=== PATIENT | female | born 1955 | race Caucasian/White ===

== ENCOUNTER 2016-07-23 07:20 | Emergency (ER) | payer OTHER ==
[~2016-07-23] VITALS: Ht 157.5 cm; Wt 47.0 kg
[2016-07-23 07:50] LABS: EOSINOPHIL (%) 1.9 % (0-5); EOSINOPHIL COUNT 0.1 K/uL (0-0.3); HEMATOCRIT 42.4 % (36.0-46.0); IMMATURE GRANULOCYTE (%) 0.4 % (0.0-0.7); INSTRUMENT ABS NEUTROPHIL CT 3.3 K/uL; LYMPHOCYTE COUNT 1.3 K/uL (1.0-2.8); MCH 32.8 PG (29.0-34.0); MCHC 34.7 G/DL (30.0-36.0); MCV 94.6 FL (83-99); MEAN PLAT.VOLUME 9.2 uM^3 (9.5-12.4); MONOCYTE (%) 9.4 % (3-12); MONOCYTE COUNT 0.5 K/uL (0-0.8); NEUTROPHIL (%) 62.5 % (45-76); NEUTROPHIL COUNT 3.3 K/uL (1.8-6.4); PLATELET COUNT 274 K/uL (156-360); RBC DIS.WIDTH-CV 12.6 % (11.8-14.6); RBC DIS.WIDTH-SD 43.8 % (39-53); RED BLOOD COUNT 4.48 M/uL (3.80-5.20); WHITE BLOOD COUNT 5.3 K/uL (4.1-10.2)
[2016-07-23 07:58] LABS: CHLORIDE 102 mEq/L (99-109); POTASSIUM 4.5 mEq/L (3.7-5.4); SODIUM 134 mEq/L (136-147)
[2016-07-23 08:00] LABS: GLUCOSE 108 mg/dL (70-99)
[2016-07-23 08:01] LABS: ANION GAP 11 MEQ/L (2-14)
[2016-07-23 08:02] LABS: TOTAL BILIRUBIN 0.5 mg/dL (0.0-1.0)
[2016-07-23 08:04] LABS: ALKALINE PHOSPHATASE 101 IU/L (3-129); GFR ESTIMATE (CALCULATED) > 59 mL/min/
[2016-07-23 08:05] LABS: UREA NITROGEN (BUN) 7 mg/dL (9-23)
[2016-07-23 08:07] LABS: LIPASE 42 U/L (1.0-51.0)
[2016-07-23 08:55] LABS: ADD MIUA? YES; BILIRUBIN NEGATIVE; BLOOD MODERATE; COLOR YELLOW ((YELLOW)); GLUCOSE (STRIP) NEGATIVE; KETONES NEGATIVE; LEUKOCYTES SMALL; NITRITE NEGATIVE; PROTEIN (STRIP) NEGATIVE; UROBILINOGEN 0.2 MG/DL (0.2-1.0)
[2016-07-23 09:13] LABS: BACTERIA NONE SEEN /HPF; EPITHELIAL CELLS RARE /HPF; HYALINE CASTS 0-5 /LPF; MUCUS TRACE /LPF; UCUL ADDED? NO
[2016-07-23] MEDS ORDERED: CIPRO500 MG PO (13:29)
[2016-07-23 14:12] VITALS: BP 171/75
== END 2016-07-23 14:14 | disposition home or self-care (01) ==
LOC: EME 07:20
PROVIDERS: Emergency Medicine
DX: R10.9 Unspecified abdominal pain (principal); N39.0 Urinary tract infection, site not specified; Z85.048 Personal history of other malignant neoplasm of rectum, rectosigmoid junction, and anus; Z90.49 Acquired absence of other specified parts of digestive tract; Z90.710 Acquired absence of both cervix and uterus; F17.200 Nicotine dependence, unspecified, uncomplicated
CPT/HCPCS: 74177; 80053; 81003; 83690; 85025; 93926; 99281; 99285; J1885; J2405; J7030

== ENCOUNTER 2017-06-16 23:42 | Emergency (ER) | payer OTHER ==
[~2017-06-16] VITALS: Ht 157.5 cm; Wt 48.0 kg
[~2017-06-16 23:42] MED LIST: CIPRO500 MG PO
[2017-06-17] MEDS ORDERED: AUGMENTIN875 MG PO (01:32)
[2017-06-17 02:02] VITALS: BP 176/79
[2017-06-17] MEDS ORDERED: LOSARTAN POTASS25 MG PO (02:04)
== END 2017-06-17 02:05 | disposition home or self-care (01) ==
LOC: EME 23:42
DX: S61.012A Laceration without foreign body of left thumb without damage to nail, initial encounter (principal); S62.522A Displaced fracture of distal phalanx of left thumb, initial encounter for closed fracture; W54.0XXA Bitten by dog, initial encounter; Z23 Encounter for immunization
CPT/HCPCS: 73140; 99281; 99284; S0020